=== PATIENT | male | born 1955 | race Caucasian/White ===

== ENCOUNTER 2019-02-02 06:25 | Day surgery (SDC) | payer SELFPAY ==
[~2019-02-02] VITALS: Ht 182.9 cm; Wt 83.9 kg
[~2019-02-02 06:25] MED LIST: SODIUM CHLORIDE 0.9% 1000ML 1,000 ML IV ONE
[2019-02-02] MEDS ORDERED: PRAV20TA4 PO (07:53)
[2019-02-02] MEDS ORDERED: PROPOFOL 10 MG/ML 20ML VIAL IV ONE (08:15)
[2019-02-02] MEDS ORDERED: LIDOCAINE HCL 1% 20 ML VIAL ONE (08:17)
[2019-02-02 08:35] VITALS: BP 94/47
[2019-02-02 08:41] VITALS: BP 94/44
[2019-02-02 08:45] VITALS: BP 108/74
[2019-02-02 08:52] VITALS: BP 120/81
[2019-02-02 08:57] VITALS: BP 120/81
== END 2019-02-02 09:30 | disposition home or self-care (01) ==
LOC: ENDO 06:25 → DAH 06:25 → ENDO 09:30
PROVIDERS: ATTEND Internal Medicine
DX: R19.4 Change in bowel habit (principal); K63.5 Polyp of colon; K57.30 Diverticulosis of large intestine without perforation or abscess without bleeding; K64.8 Other hemorrhoids; E78.5 Hyperlipidemia, unspecified; Z88.8 Allergy status to other drugs, medicaments and biological substances; Z86.010 Personal history of colon polyps; Z79.899 Other long term (current) drug therapy; Z98.890 Other specified postprocedural states; Z72.89 Other problems related to lifestyle; Z80.0 Family history of malignant neoplasm of digestive organs; Z82.3 Family history of stroke
CPT/HCPCS: 45380; 45385; 88305; A4215; A4221; A4222; A4223; A4606; A4615; A4663; J2704; J7030